=== PATIENT | male | born 1990 | race Caucasian/White ===

== ENCOUNTER 2022-12-15 11:34 | Emergency (ER) | payer OTHER, SELFPAY ==
[2022-12-15 11:39] VITALS: BP 155/97; PULSE 108; RESP 16; TEMP 36.9; O2SAT 98; BMI 23.1
--- NOTE | 2022-12-15 11:51 | XR_ITS ---
The [address] [address] Patient Name: JESSE DUPREE MRN: [id number] date: 1990 Sex: M Assigned Patient Location: ER Current Patient Location: ER Accession/Order Number: [id number] Exam Date: 12/15/2022 12:05 Report Date: 12/15/2022 12:33 At the request of: STEVEN FRANK Procedure: XR ankle RT min 3V EXAMINATION: XR ankle RT min 3V HISTORY: Fall TECHNIQUE: XR ankle RT min 3V COMPARISON: None RESULT: Nondisplaced comminuted fracture distal fibula. Additional nondisplaced fracture posterior tibia. Joint spaces and ankle mortise is within normal limits. Moderate soft tissue swelling. IMPRESSION: Nondisplaced comminuted fracture distal fibula and suspected nondisplaced fracture posterior distal tibia, with moderate soft tissue swelling. Electronically authenticated by: WILLIAM BYRD Date: 12/15/2022 12:33
--- NOTE | 2022-12-15 11:52 | ED.LOWEXI1 ---
HPI - Extremity Injury (Lower) General Chief Complaint: Extremity Injury, Lower Stated Complaint: LOWER EXTREMITY INJURY RIGHT ANKLE Time Seen by Provider: 12/15/22 11:51 Source: patient Source comment: patient Mode of arrival: walk-in Limitations: no limitations History of Present Illness HPI Narrative: patient here is noted injury to his right ankle. He states he was walking with a cooler and a chair last night going down a hill and lost his balance. He rolled his ankle and has had pain and discomfort and swelling over the right ankle since that time. He did not have any other injury to his knee upper extremities head or neck. He's not had previous fractures or injuries this will be a problem focused examination as noted below Related Data Allergies Allergy/AdvReac Type Severity Reaction Status Date / Time No Known Drug Allergies Allergy Verified 12/15/22 11:52 PFSH PFSH Social History Smoking status: Current every day smoker Exam Narrative Exam Narrative: awake alert pleasant obvious sooft tissue swelling noted over the lateral joint margins. He does have bony tenderness in this area and he also has bony tenderness over the medial joint at the deltoid. Does not have any pain over the metatarsals. His knee and lower leg are asymptomatic. X-rays were ordered after evaluation there is substantial discomfort in the high ankle joint. Constitutional Vital Signs - 24 hr 12/15/22 11:39 Temperature 98.5 F Pulse Rate [Monitor] 108 H Respiratory Rate 16 Blood Pressure [Right Arm] 155/97 H Pulse Oximetry 98 Oxygen Delivery Method Room Air Course Vital Signs Vital signs: Vital Signs Temperature 98.5 F 12/15/22 11:39 Pulse Rate 108 H 12/15/22 11:39 Respiratory Rate 16 12/15/22 11:39 Blood Pressure 155/97 H 12/15/22 11:39 Pulse Oximetry 98 12/15/22 11:39 Oxygen Delivery Method Room Air 12/15/22 11:39 Temperature 98.5 F 12/15/22 11:39 Pulse Rate 108 H 12/15/22 11:39 Respiratory Rate 16 12/15/22 11:39 Blood Pressure 155/97 H 12/15/22 11:39 Pulse Oximetry 98 12/15/22 11:39 Oxygen Delivery Method Room Air 12/15/22 11:39 MDM - Extremity Injury (Lower) MDM Narrative Medical decision making narrative: x-rays were reviewed by myself and show a minimally displaced distal fibular fracture not involving the joint. The malleolus areas and the foot appears normal. We will instruct him on crutch use and nonweightbearing. He'll be advised to follow-up with Dr. high Welch Discharge Plan Discharge Chief Complaint: Extremity Injury, Lower Clinical Impression: Broken fibula Patient Disposition: Home, Self-Care Time of Disposition Decision: 12:10 Stand Alone Forms: Portal Instructions Referrals: Physician,Non-Staff, MD [Primary Care Provider] - 1 week
== END 2022-12-15 12:44 | disposition home or self-care (01) ==
PROVIDERS: Emergency Provider Emergency Medicine Emergency Medical Services
DX: S82.454A Nondisplaced comminuted fracture of shaft of right fibula, initial encounter for closed fracture (principal); X50.1XXA Overexertion from prolonged static or awkward postures, initial encounter; F17.210 Nicotine dependence, cigarettes, uncomplicated
CPT/HCPCS: 73610; 99283

== ENCOUNTER 2022-12-18 10:20 | Outpatient (OUT) | payer OTHER, SELFPAY ==
--- NOTE | 2022-12-18 10:27 | XR_ITS ---
[address] [address] Patient Name: JESSE DUPREE MRN: [id number] date: 1990 Sex: M Assigned Patient Location: RAD Current Patient Location: RAD Accession/Order Number: [id number] Exam Date: 12/18/2022 10:27 Report Date: 12/18/2022 12:06 At the request of: ANY ARIAS Procedure: XR ankle RT min 3V PROCEDURE: XR ankle RT min 3V HISTORY: RIGHT ANKLE PAIN COMPARISON: XR ankle right 12/15/2022 FINDINGS: BONES:Nondisplaced oblique fracture of the distal fibula extending into the lateral malleolus slightly greater widening of the fracture lines, bone resorption as part of early healing process versus slight movement. Suspect nondisplaced fracture of the posterior malleolus. No appreciable callus formation along the margins of the fractures. SOFT TISSUES:Mild/moderate soft tissue swelling surrounding the ankle and proximal foot. EFFUSION:None visible. OTHER: Negative. IMPRESSION: 1. Nondisplaced to very minimally displaced acute fracture of the distal fibula and suspected nondisplaced fracture of the posterior malleolus; not significantly changed. Electronically authenticated by: ELSA CANAS Date: 12/18/2022 12:06
== END 2022-12-18 23:59 | disposition home or self-care (01) ==
LOC: RAD 01-01 10:21
PROVIDERS: Visit Provider Student in an Organized Health Care Education/Training Program
DX: M25.571 Pain in right ankle and joints of right foot (principal); S82.831A Other fracture of upper and lower end of right fibula, initial encounter for closed fracture
CPT/HCPCS: 73610

== ENCOUNTER 2022-12-20 09:53 | Outpatient (OUT) | payer OTHER, SELFPAY ==
--- NOTE | 2022-12-20 09:54 | CT_ITS ---
[address] [address] Patient Name: JESSE DUPREE MRN: [facility]:[id number] date: 1990 Sex: M Assigned Patient Location: CT Current Patient Location: CT Accession/Order Number: [id number] Exam Date: 12/20/2022 10:13 Report Date: 12/20/2022 11:04 At the request of: ANY ARIAS Procedure: CT ankle RT wo con EXAMINATION: CT ankle RT wo con HISTORY: Displaced fracture of lateral malleolus of R fibula S82.61XA COMPARISON: XR ankle right 12/18/2022 TECHNIQUE: Multi-planar CT images were created without IV contrast. Dose reduction techniques were achieved by using automated exposure control and/or adjustment of mA and/or kV according to patient size and/or use of iterative reconstruction technique. FINDINGS: BONES: Oblique fracture of the distal fibula at the diametaphyseal junction with 2.5 mm widening of the fracture line. Nondisplaced fracture involving the posterior corner of the distal tibia. SOFT TISSUES: Mild soft tissue swelling/edema surrounding the ankle. EFFUSION: None visible. OTHER: Negative. IMPRESSION: 1. Minimally displaced acute oblique fracture of the distal fibula. 2. Nondisplaced posterior malleolus fracture. Electronically authenticated by: ELSA CANAS Date: 12/20/2022 11:04
== END 2022-12-20 09:54 | disposition home or self-care (01) ==
PROVIDERS: Visit Provider Student in an Organized Health Care Education/Training Program
DX: S82.61XA Displaced fracture of lateral malleolus of right fibula, initial encounter for closed fracture (principal); S82.391A Other fracture of lower end of right tibia, initial encounter for closed fracture
CPT/HCPCS: 73700

== ENCOUNTER 2022-12-25 14:33 | Outpatient (OUT) | payer OTHER, SELFPAY ==
--- NOTE | 2022-12-25 15:12 | XR_ITS ---
[address] [address] Patient Name: JESSE DUPREE MRN: [id number] date: 1990 Sex: M Assigned Patient Location: [facility] Current Patient Location: [facility] Accession/Order Number: [id number] Exam Date: 12/25/2022 15:28 Report Date: 12/25/2022 15:48 At the request of: BEBA CASTILLO Procedure: XR chest 2V EXAM: XR chest 2V HISTORY: e cig use. Presurgery. COMPARISON: None. TECHNIQUE: PA and lateral views of the chest FINDINGS: There is no focal airspace consolidation. The cardiomediastinal silhouette is not enlarged. No evidence of pleural effusion or pneumothorax are identified. No acute osseous abnormality. There are degenerative changes of lower dorsal spine. IMPRESSION: No acute cardiopulmonary process. Electronically authenticated by: JASMIN TILLMAN Date: 12/25/2022 15:48
== END 2022-12-25 14:34 | disposition home or self-care (01) ==
LOC: PST 14:34
PROVIDERS: Visit Provider Podiatrist Foot & Ankle Surgery
DX: Z01.810 Encounter for preprocedural cardiovascular examination (principal); S82.301A Unspecified fracture of lower end of right tibia, initial encounter for closed fracture
CPT/HCPCS: 71046

== ENCOUNTER 2022-12-26 08:53 | Day surgery (SDC) | payer OTHER, SELFPAY ==
[2022-12-25 14:49] VITALS: BMI 22.7
[2022-12-25 15:02] VITALS: BMI 22.7
[2022-12-26] VITALS (12 sets, daily range): BP systolic 134–163; BP diastolic 88–104; PULSE 80–104; RESP 12–19; TEMP 36.2–36.6; O2SAT 96–100; BMI 23.4
--- NOTE | 2022-12-26 | XR_ITS ---
[address] [address] Patient Name: JESSE DUPREE MRN: [id number] date: 1990 Sex: M Assigned Patient Location: [facility] Current Patient Location: Accession/Order Number: [id number] Exam Date: 12/26/2022 00:00 Report Date: 12/26/2022 16:50 At the request of: BEBA CASTILLO Procedure: XR ankle RT 2V OR FLUOROSCOPY/IMAGING CLINICAL HISTORY: RT ORIF BIMALLEOLAR FX COMPARISON: 12/20/2022. 12/18/2022. TECHNIQUE: 34 images were obtained as part of a surgical procedure for localization or correlation purposes. FLUOROSCOPY TIME: 152.4 seconds. FINDINGS: Limited spot fluoroscopic intraoperative radiographs of posterior and lateral malleolar internal fixation. Please refer to the operative procedure note for additional details. Electronically authenticated by: JOSE A MCPHERSON Date: 12/26/2022 16:50
[2022-12-26 09:07] LABS: Basophils Absolute Auto 0.1 10^3/uL (0.0-0.1); Basophils Percent Auto 0.7 % (0.2-2.0); Eosinophils Absolute Auto 0.3 10^3/uL (0.0-0.7); Eosinophils Percent Auto 4.1 % (0.9-7.0); Immature Granulocytes Abs Auto 0.02 10^3/uL (0.00-0.03); Immature Granulocytes Pct Auto 0.2 % (0.0-0.5); Lymphocytes Absolute Auto 2.3 10^3/uL (1.2-3.8); Lymphocytes Percent Auto 27.8 % (20.5-60.0); Mean Corpuscular HGB Conc 34.8 g/dL (29.9-35.2); Mean Corpuscular Hemoglobin 33.5 pg (25.9-34.0); Mean Corpuscular Volume 96.4 fL (80.0-94.0); Mean Platelet Volume 9.6 fL (9.5-13.5); Monocytes Absolute Auto 0.9 10^3/uL (0.3-0.8); Monocytes Percent Auto 10.7 % (1.7-12.0); Neutrophils Absolute Auto 4.6 10^3/uL (1.4-6.5); Neutrophils Percent Auto 56.5 % (43.0-75.0); Platelet Count 316 10^3/uL (150-450); Red Blood Count 4.77 10^6/uL (4.70-6.10); Red Cell Distribution Width 12.4 % (11.0-15.0); White Blood Count 8.1 10^3/uL (4.0-11.0)
[2022-12-26 09:32] LABS: Glucometer 89 mg/dL (74-106)
[2022-12-26] MEDS: LACTATED RINGER'S SOLUTION 1,000 ML 50 ML IV ×2 (09:38→12:29)
--- NOTE | 2022-12-26 10:54 | PC.NURSE ---
time out completed as documented in EMR. pt was positioned per anesthesia and 2L O2 was applied via nasal cannula. pts vitals were monitored throughout the procedure and WNL throughout. procedure began at 1030 and completed at 1039. the block was completed by . once block was completed pt was positioned supine,bed to lowest position with siderails up and call light within reach. pt educated to use call light if they had any needs. vitals will be monitored until pt is taken back to the OR.
[2022-12-26] MEDS: CEFAZOLIN SODIUM/DEXTROSE,ISO 2 GM/50 ML PIGGYBACK IV (12:24)
--- NOTE | 2022-12-26 14:10 | PM.ORONB ---
Brief Operative Note Date of procedure: 12/26/22 Pre-op diagnosis: right bimalleolar ankle fracture, possible syndesmotic disruption Post-op diagnosis: other (right bimalleolar ankle fracture) Procedure: procedure performed: open reduction and internal fixation of right bimalleolar ankle fracture, stress examination under intraoperative fluoroscopy and application of short leg splint PROCEDURE IN DETAIL: Patient was identified in preoperative holding at which time correct side and site were marked and confirmed. Preoperative antibiotics were started and regional anesthesia was administered by the anesthesia team. The patient was brought to the operating suite and general anesthesia was administered. Thigh tourniquet was applied. The patient was then flipped onto the OR table in a well-padded prone position. The operative extremity was then prepped and draped in a usual sterile fashion. Formal timeout was performed and the operative extremity was exsanguinated and tourniquet inflated. A longitudinal incision was placed over the posterior lateral ankle between the tibia and fibula. Sharp and blunt dissection was performed meticulously and the sural nerve and associated venous structures were identified and carefully freed then retracted and protected. Small tributaries in the direct field and bleeders were coagulated. Deeper dissection was performed and deep fascia was incised. The peroneus brevis and flexor hallucis longus muscles were identified And dissection continued deep between this muscular interval. Small hematoma was evacuated and flushed with copious amounts of sterile saline. The periosteum was carefully reflected to expose the fracture lines on the fibula and posterior malleolus. All impingement tissue and hematoma was removed from the fractures. The surgical site was irrigated several times with copious saline. Then manual reduction and traction of the ankle was performed. The posterior malleolus fracture was reduced and temporarily fixated with two guide wires under fluoroscopic guidance. then a 4.0 mm cannulated screw with a washer was placed over one of the wires according to the [employer] operations intelligence chief's directions and significant compression was noted. The temporary fixation was then removed and additional guidewire was attempted to be placed however given the size of the fracture there was concern that an additional screw could fracture the fragment. Given the compression, reduction and stability achieved with a single screw was deemed adequate. The fibula was then further reduced with a reduction forcep then temporarily fixated. a 3.5 mm plate was then placed over the fracture after the reduction clamp was removed. The plate was then temporarily fixated and position of the plate was confirmed under fluoroscopy. 1st a nonlocking screw was placed in the hole just proximal to the fracture line. Then under fluoroscopy and under drill was used through the plate nearly perpendicular to the fracture plane. The near cortex was then drilled with a overdrill and a nonlocking 3.5 mm screw was placed with lag technique. Compression of the fracture line as well as further contouring of the plate was noted. Additional locking and nonlocking screws were then placed. Temporary fixation was removed. Fluoroscopy confirmed proper placement and position of the fixation. Under live fluoroscopy the syndesmosis was then stressed and noted to be stable. Surgical site was irrigated with copious sterile saline. Tourniquet was dropped after deep fascia was closed in a prompt hyperemic response was noted. Hemostasis was controlled with a temporary pressure dressing. Multiple layer closure was then performed. A dry sterile dressing consisting of Xeroform on the incisions followed by 4 x 4 gauze, ABDs, and Kerlix were applied. Multiple layers of cast padding were then applied to ensure all bony prominences were well-padded. A plaster posterior splint was then applied which was held in place by Jesse wraps. Capillary refill time to all digits was evaluated and had appropriate response. POST-OPERATIVE PLAN: Discharge home under family's care Post op instructions provided verbally and written prescription(s) were placed in chart NWB operative foot/ankle x3 wks Follow-up in 1 week INTRAOPERATIVE FINDINGS: Skin over the incision area had normal skin wrinkles with minimal bruising. Sural nerve was encountered during the procedure but was protected. Small hematoma was evacuated. Nondisplaced posterior malleolus fracture with intact posterior inferior tibiofibular ligament was noted. Displaced Gong B fibular fracture with both the fibula and tibia having normal bone quality. Reduction of the fractures with stable fixation was noted after the procedure. Stress testing revealed stable syndesmosis. Implants: Medline 4.0 mm cannulated screw; 3.5 mm posterior fibular plate with locking/nonlocking screws Anesthesia: other (general & regional anesthesia) Surgeon: Neville Cage Sort Supervisor: Alex Pascual Estimated blood loss (mL): 10 Pathology: none sent Condition: stable Disposition: PACU Preoperative Details Reason for procedure: patient is a 32-year-old male who suffered a right ankle injury while fishing on 12/14/22 he twisted his ankle between some rocks. Due to pain and inability to bear weight he presented to the emergency department and x-rays revealed a mildly displaced fibular fracture. He then followed up with Alex Pascual DPM in my office and there was high suspicion for a posterior malleolus fracture therefore a CT scan was ordered. He then followed up with me yesterday to review the CT scan which confirmed lateral and posterior malleolus fractures. We long discussion regarding potential risks and benefits of nonsurgical treatment versus surgical. Given he sustained a bimalleolar ankle fracture explained that his ankle is unstable and higher risk for long-term problems and after answering his questions he elected to undergo ORIF. I explained to him possible complications of wound, infection, nerve damage, pain, bleeding, blood clot, nonunion, delayed union, malunion, posttraumatic arthritis, painful hardware. Patient's skin was amendable to surgery yesterday as well as today in the preoperative area he did have skin wrinkles over the proposed incision site. Consent was obtained.
[2022-12-26] MEDS: HYDROMORPHONE HCL 0.5 MG/0.5 ML SYRINGE IV (15:03)
[2022-12-26] MEDS: OXYCODONE HCL 5 MG TABLET PO (15:20)
--- NOTE | 2022-12-26 15:40 | XR_ITS ---
[address] [address] Patient Name: JESSE DUPREE MRN: [id number] date: 1990 Sex: M Assigned Patient Location: [facility] Current Patient Location: [facility] Accession/Order Number: [id number] Exam Date: 12/26/2022 15:40 Report Date: 12/26/2022 16:00 At the request of: ANY ARIAS Procedure: XR ankle RT min 3V EXAM: XR ankle RT min 3V HISTORY: Tibia and fibula fractures COMPARISON: X-ray 12/18/2022 TECHNIQUE: 3 views FINDINGS: IMPRESSION: Status post open reduction internal fixation of the distal fibula and tibia. The internal hardware exhibits no gross abnormality. Postoperative soft tissue edema. Films were performed. Posterior plaster splint. Films are made available to the surgeon. Electronically authenticated by: ANKIT DOWD Date: 12/26/2022 16:00
== END 2022-12-26 16:15 | disposition home or self-care (01) ==
PROVIDERS: Visit Provider Podiatrist Foot & Ankle Surgery
PROC: (CPT 27814; principal; 2022-12-26 11:10)
DX: S82.61XA Displaced fracture of lateral malleolus of right fibula, initial encounter for closed fracture (principal); S82.391A Other fracture of lower end of right tibia, initial encounter for closed fracture; F17.290 Nicotine dependence, other tobacco product, uncomplicated; X50.1XXA Overexertion from prolonged static or awkward postures, initial encounter; S93.421A Sprain of deltoid ligament of right ankle, initial encounter
CPT/HCPCS: 27814; 36415; 73600; 73610; 76000; 82948; 85025; C1713; J1170; J2704

== ENCOUNTER 2023-01-16 13:30 | Outpatient (OUT) | payer OTHER, SELFPAY ==
--- NOTE | 2023-01-16 13:33 | XR_ITS ---
[address] [address] Patient Name: JESSE DUPREE MRN: [id number] date: 1990 Sex: M Assigned Patient Location: [facility] Current Patient Location: Accession/Order Number: [id number] Exam Date: 01/16/2023 13:33 Report Date: 01/17/2023 07:35 At the request of: ALEKSEY MINA Procedure: XR ankle RT min 3V PROCEDURE: XR ankle RT min 3V COMPARISON: 12/26/2022 HISTORY: RIGHT ANKLE PAIN FINDINGS: BONES:Stable complex distal fibular fracture fixed with a lateral plate and multiple screws. Fixation of the posterior malleolus with a single screw. No new fracture or dislocation. SOFT TISSUES:Mild diffuse soft tissue swelling EFFUSION:None visible. OTHER: Negative. XR/XR ankle RT min 3V IMPRESSION: Stable ankle fracture with internal fixation Electronically authenticated by: ANKIT LOO Date: 01/17/2023 07:35
== END 2023-01-16 13:31 | disposition home or self-care (01) ==
LOC: RAD 13:31
PROVIDERS: Visit Provider Physician Assistant
DX: S82.841D Displaced bimalleolar fracture of right lower leg, subsequent encounter for closed fracture with routine healing (principal)
CPT/HCPCS: 73610

== ENCOUNTER 2023-02-05 15:18 | Outpatient (OUT) | payer OTHER, SELFPAY ==
--- NOTE | 2023-02-05 15:24 | XR_ITS ---
The [address] [address] Patient Name: JESSE DUPREE MRN: [id number] date: 1990 Sex: M Assigned Patient Location: [facility] Current Patient Location: [facility] Accession/Order Number: [id number] Exam Date: 02/05/2023 15:24 Report Date: 02/05/2023 16:21 At the request of: BEBA CASTILLO Procedure: XR ankle RT min 3V EXAM: XR ankle RT min 3V HISTORY: RIGHT ANKLE PAIN . Follow-up study. COMPARISON: 01/16/2023 TECHNIQUE: 3 views of the left ankle were obtained. FINDINGS: The previously identified fracture of the distal fibula remains fixated with a lateral plate and multiple screws. There is satisfactory position and alignment of the fracture fragments. The lack screw remains in the distal tibia. No additional fracture or dislocation is identified. The mortise is intact. No osteochondral injury is identified. Very mild diffuse soft tissue swelling is present. XR/XR ankle RT min 3V IMPRESSION: Fixated fractures of the distal tibia and fibula, with hardware in place. There is no other evidence of an acute fracture or dislocation, and the overall appearance is unchanged. Electronically authenticated by: BEBA ARIAS Date: 02/05/2023 16:21
== END 2023-02-05 15:19 | disposition home or self-care (01) ==
LOC: RAD 15:18
PROVIDERS: Visit Provider Podiatrist Foot & Ankle Surgery
DX: S82.841D Displaced bimalleolar fracture of right lower leg, subsequent encounter for closed fracture with routine healing (principal)
CPT/HCPCS: 73610

== ENCOUNTER 2023-03-05 12:51 | Outpatient (OUT) | payer OTHER, SELFPAY ==
--- NOTE | 2023-03-05 | XR_ITS ---
The [address] [address] Patient Name: JESSE DUPREE MRN: [id number] date: 1990 Sex: M Assigned Patient Location: RAD Current Patient Location: [facility] Accession/Order Number: [id number] Exam Date: 03/05/2023 13:05 Report Date: 03/05/2023 14:23 At the request of: BEBA CASTILLO Procedure: XR ankle RT min 3V PROCEDURE: XR ankle RT min 3V DATE: 03/05/2023 12:05 PM CDT COMPARISONS: 02/05/2023 CLINICAL INDICATION: RIGHT ANKLE PAIN FINDINGS: There is no evidence of fractures or other acute osseous abnormalities. Postop changes distal fibula and distal tibia again identified, stable Ankle mortise is intact, stable Soft tissue swelling is noted about the ankle as before. There is evidence of some midfoot and hindfoot degenerative changes, stable from previous exam. XR/XR ankle RT min 3V IMPRESSION: Stable postop right ankle radiographs. Electronically authenticated by: SHERRI WERNER Date: 03/05/2023 14:23
== END 2023-03-05 12:52 | disposition home or self-care (01) ==
LOC: RAD 12:51
PROVIDERS: Visit Provider Podiatrist Foot & Ankle Surgery
DX: S82.841D Displaced bimalleolar fracture of right lower leg, subsequent encounter for closed fracture with routine healing (principal)
CPT/HCPCS: 73610

== ENCOUNTER 2023-03-27 08:45 | Outpatient (OUT) | payer OTHER, SELFPAY ==
--- NOTE | 2023-03-27 | XR_ITS ---
The [address] [address] Patient Name: JESSE DUPREE MRN: [id number] date: 1990 Sex: M Assigned Patient Location: [facility] Current Patient Location: [facility] Accession/Order Number: [id number] Exam Date: 03/27/2023 08:54 Report Date: 03/27/2023 09:42 At the request of: BEBA CASTILLO Procedure: XR ankle RT min 3V PROCEDURE: XR ankle RT min 3V HISTORY: RIGHT ANKLE PAIN COMPARISON: XR ankle right 03/05/2023 FINDINGS: BONES:Prior repair of distal fibular fracture via plate and screws. Repair of posterior malleolus via a single lag screw. No evidence of hardware fracture or loosening. No bone fracture or dislocation. Normal appearance of the ankle joint. SOFT TISSUES:No visible soft tissue swelling. EFFUSION:None visible. OTHER: Negative. XR/XR ankle RT min 3V IMPRESSION: 1. Stable surgical changes without evidence of hardware failure or change in alignment. 2. No visible fracture lines. Electronically authenticated by: ELSA CANAS Date: 03/27/2023 09:42
== END 2023-03-27 08:46 | disposition home or self-care (01) ==
PROVIDERS: Visit Provider Podiatrist Foot & Ankle Surgery
DX: S82.841D Displaced bimalleolar fracture of right lower leg, subsequent encounter for closed fracture with routine healing (principal); X58.XXXD Exposure to other specified factors, subsequent encounter
CPT/HCPCS: 73610

== ENCOUNTER 2023-04-14 14:10 | Outpatient (OUT) | payer OTHER, SELFPAY | END 2023-04-14 14:11 | disposition home or self-care (01) | LOC: WC 14:10 | PROVIDERS: Visit Provider Physician Assistant | DX: T81.30XD Disruption of wound, unspecified, subsequent encounter (principal) | CPT/HCPCS: G0463 ==

== ENCOUNTER 2023-05-05 08:57 | Outpatient (OUT) | payer OTHER, SELFPAY ==
--- NOTE | 2023-05-05 | XR_ITS ---
The [address] [address] Patient Name: JESSE DUPREE MRN: [id number] date: 1990 Sex: M Assigned Patient Location: Current Patient Location: Accession/Order Number: [id number] Exam Date: 05/05/2023 08:58 Report Date: 05/05/2023 10:57 At the request of: ALEKSEY MINA Procedure: XR ankle RT min 3V PROCEDURE: XR ankle RT min 3V COMPARISON: 03/27/2023 HISTORY: RIGHT ANKLE PAIN FINDINGS: BONES:No acute fracture or dislocation. Stable internal fixation of a distal fibular fracture with a lateral plate and screws. Remote fixation the posterior malleolus with a single screw extending just through the anterior cortex. Degenerative changes most significant along the posterior talocalcaneal joint SOFT TISSUES:Negative. No visible soft tissue swelling. EFFUSION:None visible. OTHER: Negative. XR/XR ankle RT min 3V IMPRESSION: Stable reduction internal fixation of ankle fracture Electronically authenticated by: ANKIT LOO Date: 05/05/2023 10:57
== END 2023-05-05 08:58 | disposition home or self-care (01) ==
LOC: WC 08:57
PROVIDERS: Visit Provider Physician Assistant
DX: M25.571 Pain in right ankle and joints of right foot (principal); T81.30XD Disruption of wound, unspecified, subsequent encounter
CPT/HCPCS: 73610; G0463

== ENCOUNTER 2023-08-06 13:00 | Outpatient (OUT) | payer OTHER, SELFPAY ==
--- NOTE | 2023-08-06 | XR_ITS ---
[address] [address] Patient Name: JESSE DUPREE MRN: [id number] date: 1990 Sex: M Assigned Patient Location: RAD Current Patient Location: RAD Accession/Order Number: [id number] Exam Date: 08/06/2023 13:03 Report Date: 08/06/2023 15:19 At the request of: BEBA CASTILLO Procedure: XR ankle RT min 3V PROCEDURE: XR ankle RT min 3V COMPARISON: 05/05/2023 HISTORY: RIGHT ANKLE PAIN FINDINGS: BONES:Stable reduction internal fixation of a distal fibula and posterior malleolus fracture. No acute fracture or dislocation or mechanical failure. SOFT TISSUES:Negative. No visible soft tissue swelling. EFFUSION:None visible. OTHER: Negative. XR/XR ankle RT min 3V IMPRESSION: Stable remote reduction internal fixation of distal tibia and fibular fractures Electronically authenticated by: ANKIT LOO Date: 08/06/2023 15:19
--- OUTSIDE RECORDS SUMMARY | 2023-08-06 13:08 | XMS_ITS | CCD ---
Author Name Unknown Address [address] [place] [address] Organization [facility] Care Team Providers Care Defense Attorney Name Role Phone MARNI, DR ELA Cason Attending Unavailable MARNI, DR ELA Cason Consulting Unavailable DR ELA GRIDER Admitting Unavailable JAMEEL, DR BELIA Hammond Primary Care Unavailable Problems Problem Classification Problem Date Documented Da te Episodic/Chronic Disorders of teeth and jaw (4 sources) Other specified disorders of teeth and supporting structures; Translations: [Periapical abscess without sinus] Onset: 08-25-2021 Episodic Results Test Name Value Interpretation Reference Range Facil ity CBC AUTO DIFFon 08-25-2021 BASO # 0.1 103/ul Normal 0.0-0.1 [facility] Comment on above: Performed By: #### C BC #### [facility] [address] [address] [address] Alvarado Bailey Basophils/100 WBC (Bld) 0.3 % Normal 0.2-2.0 [facility] Comment on above: Performed By: #### C BC #### [facility] [address] [address] [address] Alvarado Bailey EO # 0.1 103/ul Normal 0.0-0.7 [facility] Comment on above: Performed By: #### C BC #### [facility] [address] [address] [address] Alvarado Bailey Eosinophils/100 WBC (Bld) 0.9 % Normal 0.9-7.0 [facility] Comment on above: Performed By: #### C BC #### [facility] [address] [place] [address] Dr. Alvarado Bailey Erythrocyte distribution width (RBC) [Ratio] 13.0 % Normal 11.0-15.0 [facility] Comment on above: Performed By: #### C BC #### [facility] [address] [place] [address] Dr. Alvarado Bailey Hematocrit (Bld) [Volume fraction] 46.3 % Normal 42.0-54.0 [facility] Comment on above: Performed By: #### C BC #### [facility] [address] [place] [address] Dr. Alvarado Bailey Hemoglobin (Bld) [Mass/Vol] 15.7 g/dL Normal 14.0-18.0 [facility] Comment on above: Performed By: #### C BC #### [facility] [address] [place] [address] Dr. Alvarado Bailey IG # 0.05 10e3/ul Critically high 0.00-0.03 [facility] Comment on above: Performed By: #### C BC #### [facility] [address] [place] [address] Dr. Alvarado Bailey IG % 0.3 % Normal 0.0-0.5 [facility] Comment on above: Performed By: #### C BC #### [facility] [address] [place] [address] Dr. Alvarado Bailey LYMPH # 1.7 103/ul Normal 1.2-3.8 [facility] Comment on above: Performed By: #### C BC #### [facility] [address] [place] [address] Dr. Alvarado Bailey Lymphocytes/100 WBC (Bld) 11.5 % Critically low 20.5-60.0 [facility] Comment on above: Performed By: #### C BC #### [facility] [address] [place] [address] Dr. Alvarado Bailey MANUAL DIFF REQ NO Normal [facility] Comment on above: Performed By: #### C BC #### [facility] [address] [place] [address] Dr. Alvarado Bailey MCH (RBC) [Entitic mass] 32.9 pg Normal 25.9-34.0 [facility] Comment on above: Performed By: #### C BC #### [facility] [address] [address] [address] Alvraado Bailey MCHC (RBC) [Mass/Vol] 33.9 g/dL Normal 29.9-35.2 [facility] Comment on above: Performed By: #### C BC #### [facility] [address] [place] [address] Dr. Alvarado Bailey MCV (RBC) [Entitic vol] 97.1 fL Critically high 80.0-94.0 [facility] Comment on above: Performed By: #### C BC #### [facility] [address] [place] [address] Dr. Alvarado Bailey MONO # 0.8 103/ul Normal 0.3-0.8 [facility] Comment on above: Performed By: #### C BC #### [facility] [address] [place] [address] Dr. Alvarado Bailey Monocytes/100 WBC (Bld) 5.5 % Normal 1.7-12.0 [facility] Comment on above: Performed By: #### C BC #### [facility] [address] [place] [address] Dr. Alvarado Bailey NEUT # 12.2 103/ul Critically high 1.4-6.5 [facility] Comment on above: Performed By: #### C BC #### [facility] [address] [place] [address] Dr. Alvarado Bailey Neutrophils/100 WBC (Bld) 81.5 % Critically high 43.0-75.0 [facility] Comment on above: Performed By: #### C BC #### [facility] [address] [place] [address] Dr. Alvarado Bailey Platelet mean volume (Bld) [Entitic vol] 9.9 fL Normal 9.5-13.5 [facility] Comment on above: Performed By: #### C BC #### [facility] [address] [place] [address] Dr. Alvarado Bailey PLT 314 103/ul Normal 150-450 [facility] Comment on above: Performed By: #### C BC #### [facility] [address] [place] [address] Dr. Alvarado Bailey RBC 4.77 106/ul Normal 4.70-6.10 [facility] Comment on above: Performed By: #### C BC #### [facility] [address] [place] [address] Dr. Alvarado Bailey WBC 15.0 103/ul Critically high 4.0-11.0 [facility] Comment on above: Performed By: #### C BC #### [facility] [address] [place] [address] Dr. Alvarado Bailey CULTURE BLOODon 08-25-2021 Microscopic examination of blood, culture Culture Observations: NO GROWTH AT 5 DAYS. Normal [facility] Comment on above: Performed By: #### B [id number] #### [facility] [address] [place] [address] Dr. Alvarado Bailey PROF 14(COMP METB)on 022 Albumin [Mass/Vol] 4.3 g/dL Normal 3.5-5.0 [facility] Comment on above: Performed By: #### C MP #### [facility] [address] [place] [address] Dr. Alvarado Bailey Albumin/Globulin [Mass ratio] 1.2 {ratio} Normal [facility] Comment on above: Performed By: #### C MP #### [facility] [address] [place] [address] Dr. Alvarado Bailey ALP [Catalytic activity/Vol] 92 U/L Normal 38-126 [facility] Comment on above: Performed By: #### C MP #### [facility] [address] [place] [address] Dr. Alvarado Bailey ALT [Catalytic activity/Vol] 29 U/L Normal 21-72 [facility] Comment on above: Performed By: #### C MP #### [facility] [address] [place] [address] Dr. Alvarado Bailey Anion gap [Moles/Vol] 11.9 mmol/L Normal [facility] Comment on above: Performed By: #### C MP #### [facility] [address] [address] [address] Alvarado Bailey AST [Catalytic activity/Vol] 19 U/L Normal 17-59 [facility] Comment on above: Performed By: #### C MP #### [facility] [address] [address] [address] Alvarado Bailey Bilirubin [Mass/Vol] 0.3 mg/dL Normal 0.2-1.3 [facility] Comment on above: Performed By: #### C MP #### [facility] [address] [address] [address] Alvarado Bailey Calcium [Mass/Vol] 9.5 mg/dL Normal 8.4-10.2 [facility] Comment on above: Performed By: #### C MP #### [facility] [address] [place] [address] Dr. Alvarado Bailey Chloride [Moles/Vol] 102 mmol/L Normal 98-107 [facility] Comment on above: Performed By: #### C MP #### [facility] [address] [place] [address] Dr. Alvarado Bailey CO2 [Moles/Vol] 24.9 mmol/L Normal 22.0-30.0 [facility] Comment on above: Performed By: #### C MP #### [facility] [address] [place] [address] Dr. Alvarado Bailey Creatinine [Mass/Vol] 0.72 mg/dL Normal 0.66-1.25 [facility] Comment on above: Performed By: #### C MP #### [facility] [address] [place] [address] Dr. Alvarado Bailey EGFR-AF LIBYAN >60 Normal >=60 [facility] Comment on above: Performed By: #### C MP #### [facility] [address] [place] [address] Dr. Alvarado Bailey EGFR-NON AF LIBYAN >60 Normal >=60 [facility] Comment on above: Performed By: #### C MP #### [facility] [address] [place] [address] Dr. Alvarado Bailey Globulin (S) [Mass/Vol] 3.6 g/dL Normal [facility] Comment on above: Performed By: #### C MP #### [facility] [address] [address] [address] Alvarado Bailey Glucose [Mass/Vol] 106 mg/dL Normal 74-106 [facility] Comment on above: Performed By: #### C MP #### [facility] [address] [address] [address] Alvarado Bailey Potassium [Moles/Vol] 3.8 mmol/L Normal 3.4-5.0 [facility] Comment on above: Performed By: #### C MP #### [facility] [address] [address] [address] Alvarado Bailey Protein [Mass/Vol] 7.9 g/dL Normal 6.1-8.2 [facility] Comment on above: Performed By: #### C MP #### [facility] [address] [address] [address] Alvarado Bailey Sodium [Moles/Vol] 135 mmol/L Critically low 137-145 [facility] Comment on above: Performed By: #### C MP #### [facility] [address] [address] [address] Alvarado Bailey Urea nitrogen [Mass/Vol] 15.0 mg/dL Normal 9.0-20.0 [facility] Comment on above: Performed By: #### C MP #### [facility] [address] [address] [address] Alvarado Bailey Urea nitrogen/Creatinine [Mass ratio] 20.8 mg/mg Normal [facility] Comment on above: Performed By: #### C MP #### [facility] [address] [address] [address] Alvarado Bailey Encounters Encounter Date Encounter Type Care Provider Facility Start: 08-25-2021 End: 08-25-[address] ELA GRIDER Facility: Payers Date Payer Category Payer Unknown [id number] 1960 Private Health Insurance [id number] Summary Purpose Family History No Family History Records Found Advance Directives No Advanced Directives Records Found Additional Source Comments (unrecognized sect ion and content) No Status Records Found INFORMATION SOURCE (unrecogn ized section and content) DATE CREATED AUTHOR 01/29/2022 [facility] FOR RECORDS PERTAINING TO PATIENTS WHO ARE OR HAVE BEEN ENROLLED IN A CHEMICAL DEPENDENCY/SUBSTANCEABUSE PROGRAM, SOME INFORMATION MAY BE OMITTED. This clinical summary was aggregated from multiple sources. Caution should be exercised in using it in the provision of clinical care. This summary normalizes information from multiple sources, and as a consequence, information in this document may materially change the coding, format and clinical context of patient data. In addition, data may be omitted in some cases. CLINICAL DECISIONS SHOULD BE BASED ON THE PRIMARY CLINICAL RECORDS. [facility]. provides no warranty or guarantee of the accuracy or completeness of information in this document.
== END 2023-08-06 13:01 | disposition home or self-care (01) ==
LOC: RAD 13:00
PROVIDERS: Visit Provider Podiatrist Foot & Ankle Surgery
DX: M25.571 Pain in right ankle and joints of right foot (principal); Z98.890 Other specified postprocedural states
CPT/HCPCS: 73610